=== PATIENT | male | born 1935 | race Caucasian/White ===

== ENCOUNTER → 2017-05-25 | Outpatient (CLI) | payer MEDICARE, OTHER | END | disposition home or self-care (01) | LOC: CDC 11:28 | DX: Z01.810 Encounter for preprocedural cardiovascular examination (principal); I49.3 Ventricular premature depolarization; R31.29 Other microscopic hematuria | CPT/HCPCS: 93000 ==

== ENCOUNTER 2017-08-05 13:27 | Observation (INO) | payer OTHER ==
[~2017-08-05] VITALS: Ht 185.4 cm; Wt 118.5 kg
[2017-08-05 14:24] LABS: BASOPHIL (%) 0.2 % (0-1); EOSINOPHIL (%) 0.1 % (0-5); HEMATOCRIT 44.1 % (38.0-50.0); HEMOGLOBIN 15.8 G/DL (12.5-16.6); IMMATURE GRANULOCYTE (%) 0.5 % (0.0-0.7); LYMPHOCYTE (%) 5.1 % (15-42); LYMPHOCYTE COUNT 0.7 K/uL (1.0-2.8); MCHC 35.8 G/DL (30.0-36.0); MCV 89.5 FL (86-99); MONOCYTE (%) 5.1 % (3-12); MONOCYTE COUNT 0.7 K/uL (0-0.8); NEUTROPHIL COUNT 12.7 K/uL (1.8-6.4); PLATELET COUNT 166 K/uL (156-360); RBC DIS.WIDTH-CV 12.7 % (11.8-14.6); RBC DIS.WIDTH-SD 42.1 % (39-53); RED BLOOD COUNT 4.93 M/uL (4.00-5.50); WHITE BLOOD COUNT 14.2 K/uL (4.1-10.2)
[2017-08-05 14:34] LABS: ALBUMIN 4.2 g/dL (3.2-4.8)
[2017-08-05 14:35] LABS: CHLORIDE 102 mEq/L (99-109); POTASSIUM 3.9 mEq/L (3.7-5.4); SODIUM 138 mEq/L (136-147)
[2017-08-05 14:37] LABS: GLUCOSE 119 mg/dL (70-99); TOTAL PROTEIN 7.2 g/dL (6.4-8.3)
[2017-08-05 14:39] LABS: TOTAL BILIRUBIN 1.2 mg/dL (0.0-1.0)
[2017-08-05 14:40] LABS: ALKALINE PHOSPHATASE 82 IU/L (3-129)
[2017-08-05 14:41] LABS: CREATININE 1.3 mg/dL (0.6-1.3); GFR ESTIMATE (CALCULATED) 56 mL/min/ (58.99-99999)
[2017-08-05 14:42] LABS: AST (GOT) 23 IU/L (2-34); UREA NITROGEN (BUN) 23 mg/dL (9-23)
[2017-08-05 14:44] LABS: ALT (GPT) 19 IU/L (3-49); LIPASE 15 U/L (1.0-51.0)
[2017-08-05] MEDS ORDERED: CRESTOR10 MG PO (16:17)
[2017-08-05] MEDS ORDERED: DIOVAN HCT 81 TABLET PO (16:17)
[2017-08-05] MEDS ORDERED: FLOMAX0.4 MG PO (16:18)
[2017-08-05] MEDS ORDERED: LOW DOSE ASPIRI81 M1 PO (16:18)
[2017-08-05] MEDS ORDERED: NEXIUM40 MG PO (16:18)
[2017-08-05] MEDS ORDERED: TUMS500 MG PO (16:19)
[2017-08-05] MEDS ORDERED: VITAMIN E400 UNIT PO (16:19)
[2017-08-05] MEDS ORDERED: NASONEX17 GM BOTH NARES (16:20)
[2017-08-05 19:05] LABS: APPEARANCE CLEAR ((CLEAR)); BILIRUBIN NEGATIVE; BLOOD MODERATE; COLOR YELLOW ((YELLOW)); GLUCOSE (STRIP) NEGATIVE; KETONES NEGATIVE; LEUKOCYTES NEGATIVE; NITRITE NEGATIVE; PROTEIN (STRIP) NEGATIVE; SPECIFIC GRAVITY 1.034 (1.000-1.030); UROBILINOGEN 0.2 MG/DL (0.2-1.0)
[2017-08-05 19:11] LABS: BACTERIA NONE SEEN /HPF; EPITHELIAL CELLS NONE SEEN /HPF; MUCUS TRACE /LPF; RED BLOOD CELLS 15-20 /HPF (0-5); UCUL ADDED? NO; WHITE BLOOD CELLS 0-5 /HPF (0-5)
[2017-08-05 20:22] VITALS: BP 158/73
[2017-08-06 00:14] VITALS: BP 128/64
[2017-08-06 04:21] VITALS: BP 152/72
[2017-08-06 07:21] LABS: HEMATOCRIT 40.5 % (38.0-50.0); HEMOGLOBIN 13.9 G/DL (12.5-16.6); MCHC 34.3 G/DL (30.0-36.0); MCV 90.2 FL (86-99); PLATELET COUNT 149 K/uL (156-360); RBC DIS.WIDTH-CV 12.8 % (11.8-14.6); RBC DIS.WIDTH-SD 42.7 % (39-53); RED BLOOD COUNT 4.49 M/uL (4.00-5.50); WHITE BLOOD COUNT 8.8 K/uL (4.1-10.2)
[2017-08-06 07:44] LABS: CHLORIDE 107 MEQ/L (99-109); CREATININE 1.2 MG/DL (0.6-1.3); GFR ESTIMATE (CALCULATED) > 59 mL/min/ (58.99-99999); GLUCOSE 96 mg/dL (70-99); POTASSIUM 3.8 MEQ/L (3.7-5.4); SODIUM 140 MEQ/L (136-147); UREA NITROGEN (BUN) 16 mg/dL (9-23)
[2017-08-06 08:00] VITALS: BP 144/68
[2017-08-06 12:01] VITALS: BP 110/57
[2017-08-06] MEDS ORDERED: POLYETHYLENE GL17 GM PO (13:10)
[2017-08-06] MEDS ORDERED: DOCUSATE SODIU100 MG PO (13:10)
== END 2017-08-06 14:18 | disposition home or self-care (01) ==
LOC: EME 13:27 → 3EAST 15:39 → EDOF 15:39 → ENRESERV 15:40 → 3EAST 19:25
PROVIDERS: Emergency Medicine; Family Medicine
DX: K52.89 Other specified noninfective gastroenteritis and colitis (principal); K59.00 Constipation, unspecified; I10 Essential (primary) hypertension; D72.829 Elevated white blood cell count, unspecified; E78.5 Hyperlipidemia, unspecified; K21.9 Gastro-esophageal reflux disease without esophagitis; N40.0 Benign prostatic hyperplasia without lower urinary tract symptoms; Z88.2 Allergy status to sulfonamides
CPT/HCPCS: 74177; 80048; 80053; 81003; 83605; 83690; 85025; 85027; 87040; 99281; 99285; G0378; J0744; J1650; J2405; J7030; S0030